=== PATIENT | female | born 1995 | race Caucasian/White ===

== ENCOUNTER 2022-12-29 22:14 | Emergency (ER) | payer BC ==
[~2022-12-29] VITALS: Ht 162.6 cm; Wt 104.5 kg
[~2022-12-29 22:14] MED LIST: CYCL-1 PO
[2022-12-29 22:25] VITALS: BP 124/64
[2022-12-29] MEDS ORDERED: bacitracin 15gm ointment TP ONE (23:45)
[2022-12-29] MEDS ORDERED: LIDOcaine 1% W/epiNEPHrine 1:100,000 20ml vial IJ ONE (23:45)
[2022-12-29] MEDS ORDERED: TETanus/Pertussis (Acell)/Diphther VAC/PF (Tdap-Adult) 0.5ml syringe IMVAC ONE (23:45)
[2022-12-29] MEDS ORDERED: ibuprofen tablet 400 MG TABLET PO ONE (23:55)
== END 2022-12-30 00:34 | disposition home or self-care (01) ==
LOC: ER 22:15
DX: S01.21XA Laceration without foreign body of nose, initial encounter (principal); S01.81XA Laceration without foreign body of other part of head, initial encounter; Z88.2 Allergy status to sulfonamides; X58.XXXA Exposure to other specified factors, initial encounter; Y93.89 Activity, other specified; Y92.89 Other specified places as the place of occurrence of the external cause; Y99.8 Other external cause status
CPT/HCPCS: 12011; 90471; 90715; 99284

== ENCOUNTER 2023-03-14 18:47 | Inpatient (IN) | payer BC ==
[~2023-03-14] VITALS: Ht 162.6 cm; Wt 102.2 kg
[2023-03-14 19:58] LABS: BASOPHILS # (AUTO) 0.1 X10'3 (0-0.2); BASOPHILS % (AUTO) 0.3 % (0-1); EOSINOPHILS # (AUTO) 0.1 X10'3 (0-0.9); EOSINOPHILS % (AUTO) 0.5 % (0-6); HEMATOCRIT 40.8 % (35.0-45.0); HEMOGLOBIN 14.1 g/dl (12.0-16.0); LYMPHOCYTES # (AUTO) 2.2 X10'3 (1.1-4.8); LYMPHOCYTES % (AUTO) 12.7 % (21-51); MEAN CORPUSCULAR HEMOGLOBIN 30.5 PG (27.0-31.0); MEAN CORPUSCULAR HGB CONC 34.5 g/dL (33.0-36.5); MEAN CORPUSCULAR VOLUME 88.2 FL (78-98); MEAN PLATELET VOLUME 8.9 FL (7.4-10.4); MONOCYTES # (AUTO) 1.2 X10'3 (0-0.9); NEUTROPHILS # (AUTO) 13.7 X10'3 (1.8-7.7); NEUTROPHILS % (AUTO) 79.5 % (42-75); PLATELET COUNT 353 X10'3 (140-440); RED BLOOD COUNT 4.62 X10'6 (4.20-5.60); WHITE BLOOD COUNT 17.2 X10'3 (4.5-11.0)
[2023-03-14 20:00] LABS: URINE HCG NEGATIVE (NEG)
[2023-03-14 20:05] LABS: BILIRUBIN,URINE NEGATIVE (Neg); COLOR,URINE YELLOW (Yellow); GLUCOSE, URINE NEGATIVE (Neg); KETONES,URINE 15 mg/dl (Neg); LEUKOCYTE ESTERASE ,URINE SMALL (Neg); NITRITES, URINE NEGATIVE (Neg); OCCULT BLOOD,URINE SMALL (Neg); PROTEIN,URINE NEGATIVE (Neg); UROBILINOGEN,URINE 0.2 E.U/dL (0.2-1.0)
[2023-03-14 20:10] LABS: CLARITY,URINE SLIGHTLY CLOUDY (Clear); UA COLLECTION TYPE CLN CATCH MIDSTREAM
[2023-03-14 20:13] LABS: ALANINE AMINOTRANSFERASE 26 U/L (12-78); ALBUMIN/GLOBULIN RATIO 1.1 (1.1-1.5); ALKALINE PHOSPHATASE 75 IU/L (46-116); ANION GAP 8 (8-16); ASPARTATE AMINO TRANSFERASE 15 U/L (10-37); BILIRUBIN,TOTAL 0.9 MG/DL (0.1-1.0); BLOOD UREA NITROGEN 7 MG/DL (7-18); BUN/CREATININE RATIO 9.6 (10.0-20.0); CALCIUM 9.1 MG/DL (8.5-10.1); CHLORIDE 101 MMOL/L (99-107); CREATININE 0.73 MG/DL (0.40-0.90); GLUCOSE 98 MG/DL (70-104); LIPASE < 50 U/L (73-393); POTASSIUM 3.2 MMOL/L (3.5-5.1); SODIUM 137 MMOL/L (135-145); TOTAL PROTEIN 7.8 G/DL (6.4-8.2); eCRCL 99 ML/MIN; eGFR > 90 ML/MIN
[2023-03-14 20:14] LABS: BACTERIA,URINE NONE SEEN /HPF (Neg); MUCUS STRANDS MODERATE /LPF (Neg); RBC,URINE 0-2 /HPF (0-2); SQUAMOUS EPITHELIAL CELL,UR FEW /LPF (FEW); WBC CLUMPS,URINE FEW /HPF (NEGATIVE)
--- NOTE | 2023-03-14 22:01 | NUR ---
ANTIBIOTICS ABX LAST WEEK FOR STD ON 2 ABX FOR IT.
[2023-03-14] MEDS ORDERED: piperacillin/tazo 4.5gm/100ml 100 ML IV ONE (22:15)
[2023-03-14] MEDS ORDERED: normal saline 1000ml 1,000 ML IV ONE (22:15)
[2023-03-14] MEDS ORDERED: ketorolac trometh. 30mg/ml inj. IV ONE (22:15)
--- NOTE | 2023-03-14 22:20 | NUR ---
REC'D PT IN POC IN NAD WITH C/O RLQ PAIN SINCE LAST NIGHT THAT IS A CONSTANT DULL WITH SHARP STABBING PAIN WITH MOVEMENT, HAD NAUSEA AND DIARRHEA X 1 THIS MORNING, NOW RESOLVED, NO DIFFICULTY WITH URINATION
[2023-03-15] VITALS (24 sets, daily range): BP systolic 102–153; BP diastolic 55–83; PULSE 63–104; RESP 11–20; TEMP 97.6–98.7; O2SAT 94–100
[2023-03-15] MEDS ORDERED: acetaminophen 325mg tablet PO PRN (00:10)
[2023-03-15] MEDS ORDERED: magnesium Cl slow-release 64mg tablet PO PRN (00:10)
[2023-03-15] MEDS ORDERED: magnesium 4gm in 100ml NS 100 ML IV PRN (00:10)
[2023-03-15] MEDS ORDERED: magnesium hydroxide 30ml (MOM) UD suspension PO PRN (00:10)
[2023-03-15] MEDS ORDERED: ondansetron/PF 4mg/2ml inj IV PRN ×2 (00:10→10:30)
[2023-03-15] MEDS ORDERED: morphine 2 MG/ML inj. syringe IV PRN ×3 (00:10→10:30)
[2023-03-15] MEDS ORDERED: potassium Cl 20 mEq SR tablet PO PRN ×2 (00:10)
[2023-03-15] MEDS ORDERED: potassium Cl 40MEQ/1/2NS 520ml 520 ML IV PRN (00:10)
[2023-03-15] MEDS: dextrose 5%-1/2 normal saline 1,000 ML IV SCH ×2 (00:10→10:10)
[2023-03-15] MEDS ORDERED: mag hydrox/Alum hydrox/simeth 30ml oral suspension PO PRN (00:10)
[2023-03-15] MEDS ORDERED: magnesium 2GM in 50ml NS 50 ML IV PRN (00:10)
[2023-03-15] MEDS ORDERED: NO HOME MEDS (00:51)
--- NOTE | 2023-03-15 06:56 | NUR ---
RN ATTEMPTED TO CALL REPORT TO MELANIE CARRINGTON. MELANIE IS STILL GETTING AM REPORT AND WILL CALL BACK NEHAL.
--- NOTE | 2023-03-15 07:12 | NUR ---
Patient in room ED 2. I have received report from Summer from ER and had the opportunity to ask questions and assume patient care. Nurse did not have any excuse for why potassium was not replace for the 7 hours after medications were ordered.
[2023-03-15] MEDS ORDERED: docusate sod 100mg capsule PO SCH (08:00)
[2023-03-15] MEDS ORDERED: K and/or MAG REPLACEMENT MC SCH (08:00)
[2023-03-15] MEDS ORDERED: enoxaparin 40mg/0.4ml syringe SUBCUT SCH (08:00)
[2023-03-15] MEDS: piperacillin/tazo 3.375gm/50ml 50 ML IV SCH ×2 (08:16→16:16)
[2023-03-15] MEDS ORDERED: BUPIVAcaine/PF 2.5 mg/ml (0.25%) 30ml vial ONE (10:04)
[2023-03-15] MEDS ORDERED: meperidine/PF 25mg/ml syringe IV PRN ×3 (10:30)
[2023-03-15] MEDS ORDERED: ringers solution, lacted 1,000 ML IV SCH (10:30)
[2023-03-15] MEDS ORDERED: morphine 4 MG/ML inj SYRINge IV PRN (10:30)
[2023-03-15] MEDS ORDERED: midazolam 1 mg/ML 2ml injection ONE (10:53)
[2023-03-15] MEDS ORDERED: fentaNYL/PF 50MCG/1 ML 2ML syringe ONE (10:53)
[2023-03-15] MEDS ORDERED: sevoflurane 250ml liquid IH ONE (11:00)
[2023-03-15] MEDS ORDERED: propofol inj 20 ML IV ONE (11:11)
[2023-03-15] MEDS ORDERED: ondansetron/PF 4mg/2ml inj ONE (11:11)
[2023-03-15] MEDS ORDERED: dexamethasone sod phosphate 4mg/ml inj. ONE (11:11)
[2023-03-15] MEDS ORDERED: rocuronium 10mg/ml inj IV ONE (11:11)
[2023-03-15] MEDS ORDERED: LIDOcaine 2% (20mg/ml) 5ml vial ONE (11:11)
[2023-03-15] MEDS ORDERED: insulin regular, human U-100 3ml vial - multi-dose ONE (11:33)
[2023-03-15] MEDS ORDERED: BUPIVAcaine/PF 2.5 mg/ml (0.25%) 30ml vial IJ ONE (11:47)
[2023-03-15] MEDS ORDERED: meperidine/PF 25mg/ml syringe ONE (11:51)
[2023-03-15] MEDS ORDERED: glycopyrrolate 0.2mg/ml inj ONE (11:57)
[2023-03-15] MEDS ORDERED: neostigmine methylsulfate 1 MG/ML 10ml vial ONE (11:57)
--- NOTE | 2023-03-15 11:58 | NUR ---
Received from OR via HOSPITAL BED TO RR 5, accompanied by Anesthesiologist TRUDI and report given by Anesthesiolgist. PATIENT ON 6L VIA MASK WITH SPO2 @ 100%. SHE IS ALERT AND DOES NOT COMPLAIN OF PAIN OR NAUSEA AT THIS TIME. LR IS RUNNING AT 100ML/HR AND 40MEQ K RUNNING AT 100ML/HR THROUGH PATENT PIVS X 2. 3 ABD LAP SITES WITH DERMABOND: CDI. SCD'S ARE ON BILATERAL LEGS. WILL CONTINUE TO ASSESS.
[2023-03-15 12:42] LABS: ISTAT ANION GAP 11 (8-12); ISTAT BUN 4 mg/dL (7-18); ISTAT CL 108 mmol/L (99-107); ISTAT CREATININE 0.5 mg/dL (0.6-1.1); ISTAT GLUCOSE 68 mg/dL (70-104); ISTAT HGB 13.3 g/dl (12.0-16.0); ISTAT Hct 39 %PCV (35-45); ISTAT IONIZED CALCIUM 1.05 mmol/L (1.03-1.32); ISTAT K 3.2 mmol/L (3.5-5.1); ISTAT NA 140 mmol/L (135-145); ISTAT TOTAL CO2 21 mmol/L (24-32); ISTAT eGFR > 90 ML/MIN
--- NOTE | 2023-03-15 12:42 | NUR ---
YANNA RAN: SHOWS K 3.2. DR BRUSH NOTIFIED. NO NEW ORDERS AT THIS TIME.
--- NOTE | 2023-03-15 12:45 | NUR ---
ISTAT ALSO SHOWS GLUCOSE OF 68. APPLE JUICE GIVEN AND WILL CONTINUE TO ASSESS PATIENT
[2023-03-15] MEDS: proCHLORperazine 10 MG/2 ml inj IV PRN ×2 (12:59→13:16)
--- NOTE | 2023-03-15 13:32 | NUR ---
BLOOD GLUCOSE RECHECKED AFTER SOME JUICE. GLUCOSE 101. WILL CONTINUE TO ASSESS
--- NOTE | 2023-03-15 13:54 | NUR ---
UNDID 25 MG DEMEROL ADMIN FOR 1337 AND RESCANNED ONLY 12.5MG WAS ADMINISTERED AT THAT TIME WHICH WAS SUFFICIENT FOR THE THE PATIENTS PAIN AND NAUSEA. Addendum: 03/15/23 at 1423 by Nohelia Olivares RN ONLY ADMINISTERED THE 12.5MG DEMEROL FOR PAIN 01/03 NOT 02/02.
--- NOTE | 2023-03-15 13:58 | NUR ---
PATIENT STABLE FOR D/C BACK TO ROOM 4022A. PATIENT IS RESTING, RR EVEN AND UNLABORED, NEUROLOGICALLY INTACT, PUSH/PULLS EQUAL AND EVEN. LR RUNNING AT 100ML/HR, AND 40MEQ K RUNNING AT 130ML/HR PER MD ORDER. NO S/S OR C/O PAIN/NAUSEA/DISTRESS AT THIS TIME. 3 ABD LAP SITES WITH DERMABOND CDI. PATIENT HOOKED UP TO VS MACHINE AND POST OPS STARTED. REPORT GIVEN TO PRIMARY RN, MELANIE AND RN PRESENT IN ROOM. CALL LIGHT GIVEN TO PATIENT AND BLL. CARE TRANSFERRED TO PRIMARY RN.
--- NOTE | 2023-03-15 14:28 | NUR ---
PAGER ID: [phone] MESSAGE: Peter Taveras [id number] re: Dalton Bingham Patient nauseated had 4 of zofran, 10 of compazine still nauseated is there an is there anything you would like to add? Thanks.
[2023-03-15] MEDS ORDERED: ondansetron/PF 4mg/2ml inj IV ONE (14:45)
[2023-03-15] MEDS ORDERED: HYDR-3965 PO (15:56)
[2023-03-15] MEDS ORDERED: ONDA4TAB12 PO (15:59)
--- NOTE | 2023-03-15 17:34 | NUR ---
Patient alert and oriented x 4, patient continues to take off post op vital and we have not been able to collect a full set. Patient stated that vitals were not taking correctly and that is why she took off cuff.
--- NOTE | 2023-03-15 18:08 | NUR ---
PAGER ID: [phone] MESSAGE: Peter Taveras Re: [id number] Hailee Hoffman Patient is ready to discharge, I have completed my discharge portion. So we are going to use that discharge at this time. Thanks Peter.
--- NOTE | 2023-03-15 18:14 | NUR ---
Problems reprioritized. Patient report given, questions answered & plan of care reviewed with Anusha CARRINGTON.
--- NOTE | 2023-03-15 18:28 | NUR ---
Attempted to call patients medications into pharmacy at this time, but pharmacy was not available to accept new medication prescriptions at this time.
--- NOTE | 2023-03-15 19:59 | NUR ---
PT LEFT FLOOR AROUND 1930 ON WHEEL CHAIR ACCOMPANIED BY MANAGER CONTACT AND A FRIND. PT IS AWARE THAT SHE CAN'T RETAIL [facility]S TIL TOMORROW MORNING BECAUSE NO PHARMACY IS OPEN IN [place] AT THIS TIME. PT WAS ADVISED TO TAKE OTC MEDS, IF PAIN WORSENS, COME TO ER. PT LEFT WITH NO PAIN. ENTERED INTO FRIEND'S VEHICLE.
== END 2023-03-15 19:35 | disposition home or self-care (01) | DRG 343 ==
LOC: ER 18:48 → ED HOLD 03-15 00:20 → EDBEDREQ 03-15 05:13 → ORTHO 4S 03-15 07:23
PROVIDERS: ADMIT Internal Medicine; ATTEND Internal Medicine
PROC: 0DTJ4ZZ Resection of Appendix, Percutaneous Endoscopic Approach (ICD-10-PCS; principal; 2023-03-15 11:00)
DX: K35.80 Unspecified acute appendicitis (principal); E87.6 Hypokalemia; F12.10 Cannabis abuse, uncomplicated; Z60.2 Problems related to living alone; N83.201 Unspecified ovarian cyst, right side; Z88.2 Allergy status to sulfonamides; Z79.899 Other long term (current) drug therapy; Z71.51 Drug abuse counseling and surveillance of drug abuser
CPT/HCPCS: 96365; 96375; 99285; Z7506; 36415; 74176; 80047; 80053; 81001; 81025; 82948; 83605; 83690; 84132; 84145; 85025; 87040; 87081; 87088; A4215; A4618; A7000; G0378; J0780; J1100; J1815; J1885; J2175; J2250; J2405; J2543; J2704; J2710; J3010; J3480; J3490; J7030; J7120

== ENCOUNTER 2023-03-18 16:44 | Emergency (ER) | payer BC ==
[~2023-03-18] VITALS: Ht 162.6 cm; Wt 108.0 kg
[~2023-03-18 16:44] MED LIST changes: -CYCL-1 PO; +HYDR-3965 PO; +ONDA4TAB12 PO
[2023-03-18 17:01] VITALS: BP 103/86; PULSE 86; TEMP 98.4; O2SAT 95
[2023-03-18 17:40] LABS: URINE HCG NEGATIVE (NEG)
[2023-03-18 17:50] LABS: BILIRUBIN,URINE NEGATIVE (Neg); CLARITY,URINE SLIGHTLY CLOUDY (Clear); COLOR,URINE YELLOW (Yellow); GLUCOSE, URINE NEGATIVE (Neg); KETONES,URINE NEGATIVE (Neg); LEUKOCYTE ESTERASE ,URINE NEGATIVE (Neg); NITRITES, URINE NEGATIVE (Neg); OCCULT BLOOD,URINE TRACE-INTACT (Neg); PROTEIN,URINE NEGATIVE (Neg); UROBILINOGEN,URINE 0.2 E.U/dL (0.2-1.0)
[2023-03-18 17:57] LABS: UA COLLECTION TYPE CLN CATCH MIDSTREAM
[2023-03-18 18:07] LABS: BACTERIA,URINE FEW /HPF (Neg); WBC,URINE 0-4 /HPF (0-4)
[2023-03-18 18:08] LABS: SQUAMOUS EPITHELIAL CELL,UR FEW /LPF (FEW)
[2023-03-18 18:26] LABS: BASOPHILS % (AUTO) 0.5 % (0-1); EOSINOPHILS # (AUTO) 0.2 X10'3 (0-0.9); EOSINOPHILS % (AUTO) 1.9 % (0-6); HEMATOCRIT 40.5 % (35.0-45.0); HEMOGLOBIN 13.5 g/dl (12.0-16.0); LYMPHOCYTES # (AUTO) 2.4 X10'3 (1.1-4.8); LYMPHOCYTES % (AUTO) 25.4 % (21-51); MEAN CORPUSCULAR HEMOGLOBIN 29.8 PG (27.0-31.0); MEAN CORPUSCULAR HGB CONC 33.3 g/dL (33.0-36.5); MEAN CORPUSCULAR VOLUME 89.4 FL (78-98); MEAN PLATELET VOLUME 8.4 FL (7.4-10.4); MONOCYTES # (AUTO) 0.7 X10'3 (0-0.9); MONOCYTES % (AUTO) 7.3 % (2-12); NEUTROPHILS # (AUTO) 6.1 X10'3 (1.8-7.7); NEUTROPHILS % (AUTO) 64.9 % (42-75); PLATELET COUNT 392 X10'3 (140-440); RED BLOOD COUNT 4.52 X10'6 (4.20-5.60); RED CELL DISTRIBUTION WIDTH 13.9 % (11.5-14.5); WHITE BLOOD COUNT 9.4 X10'3 (4.5-11.0)
[2023-03-18 18:40] LABS: ALANINE AMINOTRANSFERASE 23 U/L (12-78); ALBUMIN 3.9 G/DL (3.4-5.0); ALBUMIN/GLOBULIN RATIO 1.1 (1.1-1.5); ALKALINE PHOSPHATASE 59 IU/L (46-116); ANION GAP 6 (8-16); ASPARTATE AMINO TRANSFERASE 14 U/L (10-37); BILIRUBIN,TOTAL 0.3 MG/DL (0.1-1.0); BLOOD UREA NITROGEN 12 MG/DL (7-18); CHLORIDE 100 MMOL/L (99-107); CREATININE 0.75 MG/DL (0.40-0.90); GLUCOSE 88 MG/DL (70-104); LIPASE < 50 U/L (73-393); POTASSIUM 3.9 MMOL/L (3.5-5.1); SODIUM 138 MMOL/L (135-145); TOTAL CARBON DIOXIDE 31.7 MMOL/L (24-32); TOTAL PROTEIN 7.6 G/DL (6.4-8.2); eCRCL 96 ML/MIN; eGFR > 90 ML/MIN
[2023-03-18 19:18] VITALS: RESP 18
== END 2023-03-18 19:36 | disposition left against medical advice (07) ==
LOC: ER 16:46
DX: R10.9 Unspecified abdominal pain (principal); Z53.21 Procedure and treatment not carried out due to patient leaving prior to being seen by health care provider
CPT/HCPCS: 36415; 80053; 81001; 81025; 83690; 85025; 99281